=== PATIENT | male | born 1985 | race Caucasian/White ===

== ENCOUNTER 2017-09-10 19:59 | Emergency (ER) | payer OTHER ==
[~2017-09-10] VITALS: Ht 172.7 cm; Wt 92.9 kg
[2017-09-10 20:01] VITALS: Ht 172.7 cm; Wt 92.9 kg
[2017-09-10] MEDS ORDERED: ACETAMINOPHEN 500 MG TAB PO STA (20:30)
--- NOTE | 2017-09-10 20:57 | DIAGNOSTIC IMAGING REPORT ---
TWO VIEW CHEST CLINICAL HISTORY: Cough. FINDINGS: PA and lateral chest radiographs are obtained. No prior studies are available for comparison at the time of dictation. The cardiomediastinal silhouette is unremarkable. The lungs and pleural spaces are clear. There is no pneumothorax. The bony thorax appears intact. IMPRESSION: No active disease in the chest. Electronically signed by: Darek Ruiz M.D. 09/10/2017 8:56 PM Dictated Date/Time: 09/10/2017 8:55 PM
[2017-09-10] MEDS ORDERED: IBUPROFEN 800 MG TAB PO STA (21:40)
--- NOTE | 2017-09-10 22:12 | EMERGENCY ROOM VISIT NOTE ---
History First contact with patient: 20:06 Chief Complaint: FLU LIKE SX Stated Complaint: HAS FLU,FEVER,LIGHT HEADED,CHILLS History of Present Illness The patient is a 32 year old male who presents to the Emergency Room with complaints of symptoms. The patient was seen at his primary care provider's office yesterday and diagnosed with influenza. He states that he has had weakness, bodyaches, fevers/chills, sore throat and a dry cough for the past 2 days. He was started on Tamiflu yesterday and has taken 2 doses. He states that today, he has had a fever of 103F and feels that his symptoms of chills and body aches have worsened. He has not taken any [id number] medications for his symptoms. He denies abdominal pain, vomiting, diarrhea, neck pain/stiffness. Review of Systems A complete 10 point review of systems was reviewed with the patient with pertinent positives and negatives as per history of present illness. All else were negative. Past Medical/Surgical History Medical Problems: (1) No significant past medical history Surgical Problems: (1) No significant past surgical history Family History Diabetes mellitus Hypertension Social History Smoking Status: Never Smoker Alcohol Use: occasionally Marital Status: Housing Status: lives with family Occupation Status: employed Current/Historical Medications No Active Prescriptions or Reported Meds Physical Exam Vital Signs Date Time Temp Pulse Resp B/P (MAP) Pulse Ox O2 Delivery O2 Flow Rate FiO2 09/10/17 22:21 37.7 98 18 125/78 97 09/10/17 21:53 38.3 09/10/17 21:23 39.5 104 18 130/74 97 Room Air 09/10/17 20:01 39.5 116 16 169/104 99 Room Air Physical Exam VITALS: Vitals are noted on the nurse's note and reviewed by myself. Vital signs stable. GENERAL: This is a 32-year-old male, in no acute distress, nondiaphoretic, well- developed well-nourished. SKIN: The skin was without rashes. EARS: External auditory canals clear, tympanic membranes are minimally erythematous without effusion. EYES: Pupils equal round and reactive to light and accommodation. Extraocular movements intact. NOSE: Patent, turbinates without inflammation or discharge. MOUTH: Mucous membranes moist. Tonsils are not enlarged. Pharynx without erythema or exudate. NECK: Supple without nuchal rigidity. No lymphadenopathy. No meningismus. HEART: Regular rate and rhythm without murmurs gallops or rubs. LUNGS: Clear to auscultation bilaterally without wheezes, rales or rhonchi. No retractions or accessory muscle use. ABDOMEN: Soft, nontender to palpation. NEURO: Patient was alert and oriented to person place and time. Medical Decision & Procedures ER Provider Diagnostic Interpretation: TWO VIEW CHEST CLINICAL HISTORY: Cough. FINDINGS: PA and lateral chest radiographs are obtained. No prior studies are available for comparison at the time of dictation. The cardiomediastinal silhouette is unremarkable. The lungs and pleural spaces are clear. There is no pneumothorax. The bony thorax appears intact. IMPRESSION: No active disease in the chest. Laboratory Results Medications Administered Medications (Trade) Dose Ordered Sig/Jaime Route Start Time Stop Time Status Last Admin Dose Admin Acetaminophen (Tylenol Tab) 1,000 mg NOW STAT PO 09/10/17 20:30 09/10/17 20:31 DC 09/10/17 20:37 1,000 MG Ibuprofen (Motrin Tab) 800 mg NOW STAT PO 09/10/17 21:40 09/10/17 21:41 DC 09/10/17 21:54 800 MG Medical Decision The patient was evaluated as above. Rapid strep swab was obtained and was negative. Chest x-ray shows no evidence of pneumonia. Patient has already been diagnosed with influenza A. He was given 1 g Tylenol and 800 mg ibuprofen which improved his fever and patient reported improvement. He was tachycardic on presentation which I feel is likely secondary to fever. He was able to orally rehydrate. He was encouraged to alternate Tylenol and ibuprofen at home and stay well-hydrated. Verbalized understanding of my assessment and treatment plan and was discharged home in good condition. Medication Reconcilliation Current Medication List: was personally reviewed by wi Blood Pressure Screening Patient's blood pressure: Normal blood pressure Impression Primary Impression: Influenza Departure Information Dispostion Home / Self-Care Condition GOOD Prescriptions No Active Prescriptions or Reported Meds Referrals Jose Manzanares DO (PCP) Patient Instructions My [facility] [address] Additional Instructions Continue the Tamiflu as prescribed. For fever control, you can use the following ougd-nxf-xdxkosc medicines (if >12 yo): - Regular strength (325mg/tab) Tylenol (acetaminophen) 2 tabs every 6 hours as needed. Do not exceed 12 tablets in a 24 hour period. Avoid taking more than 4 grams (4000 mg) of Tylenol per day. This includes any other sources of acetaminophen you may take on a regular basis. - Regular strength (200 mg/tab) Advil (ibuprofen) 3-4 tabs every 4-6 hours as needed. Do not exceed a dose of 3200 mg per day. You may alternate these medications for better pain/fever control. Make sure to stay well hydrated and drink plenty of fluids. Return to the emergency department with worsening symptoms, vomiting, neck pain/ stiffness, or any other new/concerning symptoms.
[2017-09-10 22:21] VITALS: BP 125/78; PULSE 98; TEMP 37.7; O2SAT 97
== END 2017-09-10 22:21 | disposition home or self-care (01) ==
LOC: C.EDB 20:01 → C.EDC 22:21
DX: J11.1 Influenza due to unidentified influenza virus with other respiratory manifestations (principal)